=== PATIENT | male | born 1995 | race Hispanic/Latino ===

== ENCOUNTER 2016-12-17 10:56 | Inpatient (IN) | payer OTHER ==
[~2016-12-17] VITALS: Ht 160 cm; Wt 80.7 kg
[2016-12-17 12:26] LABS: EOSINOPHIL (%) 0.2 % (0-5); HEMATOCRIT 45.2 % (38.0-50.0); IMMATURE GRANULOCYTE (%) 0.6 % (0.0-0.7); IMMATURE GRANULOCYTE COUNT 0.1 K/uL; INSTRUMENT ABS NEUTROPHIL CT 11.7 K/uL; LYMPHOCYTE COUNT 0.9 K/uL (1.0-2.8); MCH 29.2 PG (29.0-34.0); MCHC 34.1 G/DL (30.0-36.0); MCV 85.6 FL (86-99); MONOCYTE (%) 7.2 % (3-12); NEUTROPHIL (%) 85.3 % (45-76); NEUTROPHIL COUNT 11.7 K/uL (1.8-6.4); PLATELET COUNT 190 K/uL (156-360); RBC DIS.WIDTH-CV 11.4 % (11.8-14.6); RBC DIS.WIDTH-SD 35.1 % (39-53); RED BLOOD COUNT 5.28 M/uL (4.00-5.50); WHITE BLOOD COUNT 13.8 K/uL (4.1-10.2)
[2016-12-17 12:36] LABS: CHLORIDE 105 mEq/L (99-109); POTASSIUM 4.1 mEq/L (3.7-5.4); SODIUM 137 mEq/L (136-147)
[2016-12-17 12:38] LABS: GLUCOSE 100 mg/dL (70-99)
[2016-12-17 12:40] LABS: ANION GAP 9 MEQ/L (2-14)
[2016-12-17 12:42] LABS: ALKALINE PHOSPHATASE 53 IU/L (3-129); GFR ESTIMATE (CALCULATED) > 59 mL/min/
[2016-12-17 12:43] LABS: UREA NITROGEN (BUN) 9 mg/dL (9-23)
[2016-12-17 12:45] LABS: LIPASE 10 U/L (1.0-51.0)
[2016-12-17 12:52] LABS: ADD MIUA? YES; BILIRUBIN NEGATIVE; BLOOD NEGATIVE; COLOR YELLOW ((YELLOW)); GLUCOSE (STRIP) NEGATIVE; KETONES NEGATIVE; LEUKOCYTES NEGATIVE; NITRITE NEGATIVE; PROTEIN (STRIP) 30; SPECIFIC GRAVITY 1.024 (1.000-1.030)
[2016-12-17 12:54] LABS: BACTERIA RARE /HPF; EPITHELIAL CELLS NONE SEEN /HPF; MUCUS TRACE /LPF; RED BLOOD CELLS 0-5 /HPF (0-5); UCUL ADDED? NO; WHITE BLOOD CELLS 0-5 /HPF (0-5)
[2016-12-17 18:26] VITALS: BP 139/70
[2016-12-17 19:38] VITALS: BP 125/58
[2016-12-17 23:40] VITALS: BP 104/59
[2016-12-18 03:38] VITALS: BP 111/59
[2016-12-18 06:54] LABS: HEMATOCRIT 38.1 % (38.0-50.0); MCH 28.7 PG (29.0-34.0); MCHC 33.3 G/DL (30.0-36.0); MEAN PLAT.VOLUME 10.4 uM^3 (9.0-12.4); PLATELET COUNT 180 K/uL (156-360); RBC DIS.WIDTH-CV 11.4 % (11.8-14.6); RBC DIS.WIDTH-SD 35.2 % (39-53); RED BLOOD COUNT 4.43 M/uL (4.00-5.50)
[2016-12-18 07:05] VITALS: BP 130/60
[2016-12-18 11:38] VITALS: BP 118/64
[2016-12-18 16:45] VITALS: BP 124/57
[2016-12-18 18:49] VITALS: BP 118/63
[2016-12-18 23:29] VITALS: BP 120/66
[2016-12-19 03:36] VITALS: BP 109/58
[2016-12-19 07:15] VITALS: BP 120/63
[2016-12-19 08:05] LABS: EOSINOPHIL (%) 4.8 % (0-5); EOSINOPHIL COUNT 0.4 K/uL (0-0.3); HEMATOCRIT 37.8 % (38.0-50.0); IMMATURE GRANULOCYTE (%) 0.4 % (0.0-0.7); INSTRUMENT ABS NEUTROPHIL CT 5.5 K/uL; LYMPHOCYTE COUNT 0.9 K/uL (1.0-2.8); MCH 28.7 PG (29.0-34.0); MCHC 32.5 G/DL (30.0-36.0); MCV 88.1 FL (86-99); MEAN PLAT.VOLUME 10.2 uM^3 (9.0-12.4); MONOCYTE (%) 8.2 % (3-12); MONOCYTE COUNT 0.6 K/uL (0-0.8); NEUTROPHIL COUNT 5.5 K/uL (1.8-6.4); PLATELET COUNT 185 K/uL (156-360); RBC DIS.WIDTH-CV 11.8 % (11.8-14.6); RBC DIS.WIDTH-SD 37.8 % (39-53); RED BLOOD COUNT 4.29 M/uL (4.00-5.50)
[2016-12-19 08:12] LABS: WHITE BLOOD COUNT 7.5 K/uL (4.1-10.2)
[2016-12-19 11:48] VITALS: BP 122/66
[2016-12-19 15:00] VITALS: BP 132/71
[2016-12-19] MEDS ORDERED: AUGMENTIN875 MG PO (15:15)
[2016-12-19] MEDS ORDERED: HYDROCODON-ACE1 EAC7 PO (15:15)
[2016-12-19 20:45] VITALS: BP 127/72
[2016-12-20] VITALS (7 sets, daily range): BP systolic 119–139; BP diastolic 63–83
[2016-12-21 03:38] VITALS: BP 119/75
[2016-12-21 07:07] LABS: HEMATOCRIT 39.5 % (38.0-50.0); MCH 28.7 PG (29.0-34.0); MCHC 33.4 G/DL (30.0-36.0); MCV 85.9 FL (86-99); MEAN PLAT.VOLUME 9.9 uM^3 (9.0-12.4); RBC DIS.WIDTH-CV 11.2 % (11.8-14.6); RBC DIS.WIDTH-SD 35.2 % (39-53); WHITE BLOOD COUNT 7.6 K/uL (4.1-10.2)
[2016-12-21 07:08] LABS: PLATELET COUNT 247 K/uL (156-360)
[2016-12-21 08:11] VITALS: BP 118/70
== END 2016-12-21 15:38 | disposition home health service (06) | DRG 340 ==
LOC: EME 10:56 → SDC 14:58 → 2SOUTH 16:29 → 2EAST 16:29
PROVIDERS: Emergency Medicine; Surgery
PROC: 0DTJ4ZZ Resection of Appendix, Percutaneous Endoscopic Approach (ICD-10-PCS; principal; 2016-12-17)
DX: K35.2 Acute appendicitis with generalized peritonitis (principal)
CPT/HCPCS: 74177; 80053; 81003; 83605; 83690; 85025; 85027; 87040; 88304; 94799; 99281; 99285; J0131; J1100; J1170; J1650; J1885; J2270; J2405; J2543; J2710; J3010; J7030; J7050